=== PATIENT | male | born 1955 | race Caucasian/White ===

== ENCOUNTER 2017-07-08 19:22 | Inpatient (IN) ==
[2017-07-08] MEDS ORDERED: NITROGLYCERIN SL 0.4 MG TABLET SL PRN (19:57)
[2017-07-08] MEDS ORDERED: MORPHINE 4 MG/1 ML VIAL IV STA (19:57)
[2017-07-08] MEDS ORDERED: ASPIRIN 325 MG TABLET PO STA (19:57)
[2017-07-08] MEDS ORDERED: ONDANSETRON 4 MG/2 ML VIAL IV STA (19:57)
[2017-07-08 20:06] LABS: Basophils # 0.1 10*3/uL (0.0-0.2); Basophils % 0.6 % (0.0-0.8); Eosinophils # 0.3 10*3/uL (0.0-0.87); Eosinophils % 3.1 % (0.00-10.9); Hematocrit 46.8 VOL% (42.0-52.0); Hemoglobin 15.6 GM/DL (14.0-18.0); Immature Granulocytes % 0.4 %; Immature Granulocytes Absolute 0.03 #; Lymphocytes # 3.2 10*3/uL (1.4-4.0); Mean Corpuscular HGB Conc 33.3 GM/DL (32-36); Mean Corpuscular Hemoglobin 31 PG (27-34); Mean Corpuscular Volume 92.9 FL (87-102); Mean Platelet Volume 9.5 FL (9.6-12.0); Monocytes # 0.8 10*3/uL (0.11-0.8); Monocytes % 9.2 % (1.7-12.7); Neutrophils # 3.8 10*3/uL (1.4-7.4); Neutrophils % 46.7 % (38.7-73.9); Platelet Count 220 T/CUMM (130-400); Red Blood Count 5.04 MC/CUMM (3.8-5.5); Red Cell Distribution Width 13.1 % (9.3-17.3); White Blood Count 8.1 T/CUMM (4-12)
[2017-07-08 20:13] LABS: PT Patient Result 10.2 SECS
[2017-07-08 20:22] LABS: Albumin 4.1 G/DL (3.4-5.0); Bilirubin,Total 0.8 MG/DL (0.2-1.0); Calcium 9.5 MG/DL (8.5-10.1); Osmolality,Calculated 277.7 MOS/KG (273-304); Total Protein 7.8 G/DL (6.4-8.3)
[2017-07-08] MEDS ORDERED: LACTULOSE 20 GM/30 ML UDCUP PO PRN (22:53)
[2017-07-08] MEDS ORDERED: MAGNESIUM SULF RIDER 2 GM in PREMIX 1 EACH IV PRN ×2 (22:53)
[2017-07-08] MEDS ORDERED: ONDANSETRON 4 MG/2 ML VIAL IV PRN (22:53)
[2017-07-08] MEDS ORDERED: MAGNESIUM SULF RIDER 4 GM in PREMIX 1 EACH IV PRN ×2 (22:53)
[2017-07-08] MEDS ORDERED: ZALEPLON 5 MG CAPSULE PO PRN (22:53)
[2017-07-08] MEDS ORDERED: PANTOPRAZOLE 40 MG VIAL IV STA (22:53)
[2017-07-08] MEDS ORDERED: ACETAMINOPHEN 325 MG TABLET PO PRN (22:53)
[2017-07-08] MEDS: ENOXAPARIN 100 MG/ML SYRINGE SUBCUT SCH (23:15)
[2017-07-08] MEDS: PANTOPRAZOLE 40 MG TABLET PO SCH (23:15)
[2017-07-08] MEDS: NITROGLYCERIN 2% OINT 1 INCH/GM PACK TOP SCH (23:15)
[2017-07-09] MEDS: NITROGLYCERIN 2% OINT 1 INCH/GM PACK TOP SCH ×4 (01:33→17:19)
[2017-07-09 06:07] LABS: Risk Ratio 6.39; VLDL CHOLESTEROL 36.6 MG/DL
[2017-07-09 06:45] LABS: Troponin I Only 0.086 NG/ML (0.00-0.045)
[2017-07-09] MEDS: MELOXICAM 7.5 MG TABLET PO SCH (08:48)
[2017-07-09] MEDS: ASPIRIN 325 MG TABLET PO SCH (08:48)
[2017-07-09] MEDS: LOSARTAN 25 MG TABLET PO SCH (08:49)
[2017-07-09] MEDS: PANTOPRAZOLE 40 MG TABLET PO SCH (08:49)
[2017-07-09] MEDS: FLUTICASONE 50 MCG NASAL SPRAY 16 GM BOTTLE BOTH NARES SCH (09:59)
[2017-07-09] MEDS ORDERED: DIAZEPAM 5 MG TABLET PO ONE (11:23)
[2017-07-09] MEDS ORDERED: MAGNESIUM SULF RIDER 2 GM in PREMIX 1 EACH IV PRN (11:23)
[2017-07-09] MEDS ORDERED: diphenhydrAMINE CAP 25 MG CAPSULE PO ONE (11:23)
[2017-07-09] MEDS ORDERED: POTASSIUM CHLORIDE RIDER 10 MEQ in PREMIX 1 EACH IV PRN (11:23)
[2017-07-09] MEDS ORDERED: SODIUM CHLORIDE 0.9% 1,000 ML IV SCH ×2 (11:30→14:00)
[2017-07-09] MEDS: ENOXAPARIN 100 MG/ML SYRINGE SUBCUT SCH ×2 (11:51→22:55)
[2017-07-09] MEDS ORDERED: MIDAZOLAM 2 MG/2 ML VIAL ONE ×2 (11:58→12:18)
[2017-07-09] MEDS ORDERED: fentaNYL 100 MCG/2 ML VIAL ONE (11:59)
[2017-07-09] MEDS ORDERED: diphenhydrAMINE 50 MG/1 ML VIAL ONE (12:18)
[2017-07-09 12:31] LABS: Troponin I Only 0.061 NG/ML (0.00-0.045)
[2017-07-09] MEDS ORDERED: TIROFIBAN 5,000 MCG/100 ML PREMIX IV ONE (12:35)
[2017-07-09] MEDS ORDERED: TICAGRELOR 90 MG TABLET ONE (13:23)
[2017-07-09] MEDS ORDERED: NITROGLYCERIN DRIP 50 MG/250 ML BOTTLE IV ONE (13:24)
[2017-07-09] MEDS ORDERED: TIROFIBAN 5,000 MCG/100 ML PREMIX IV SCH (14:00)
[2017-07-09 17:28] LABS: CKMB % 10.2 %
[2017-07-09 17:30] LABS: Troponin I Only 5.77 NG/ML (0.00-0.045)
[2017-07-09] MEDS: TICAGRELOR 90 MG TABLET PO SCH (20:37)
[2017-07-09] MEDS: ROSUVASTATIN 20 MG TABLET PO SCH (20:38)
[2017-07-09 23:47] LABS: CKMB % 10.3 %
[2017-07-10 00:01] LABS: Troponin I Only 15.2 NG/ML (0.00-0.045)
[2017-07-10] MEDS: NITROGLYCERIN 2% OINT 1 INCH/GM PACK TOP SCH ×2 (00:15→06:16)
[2017-07-10 04:55] LABS: Basophils % 0.3 % (0.0-0.8); Eosinophils # 0.2 10*3/uL (0.0-0.87); Eosinophils % 2.2 % (0.00-10.9); Hematocrit 42.9 VOL% (42.0-52.0); Hemoglobin 14.9 GM/DL (14.0-18.0); Immature Granulocytes % 0.3 %; Immature Granulocytes Absolute 0.03 #; Lymphocytes # 2.1 10*3/uL (1.4-4.0); Lymphocytes % 24.2 % (21.2-54.2); Mean Corpuscular HGB Conc 34.7 GM/DL (32-36); Mean Corpuscular Hemoglobin 32 PG (27-34); Mean Corpuscular Volume 90.7 FL (87-102); Mean Platelet Volume 9.6 FL (9.6-12.0); Monocytes % 11.7 % (1.7-12.7); Neutrophils # 5.3 10*3/uL (1.4-7.4); Neutrophils % 61.3 % (38.7-73.9); Platelet Count 190 T/CUMM (130-400); Red Blood Count 4.73 MC/CUMM (3.8-5.5); Red Cell Distribution Width 13.1 % (9.3-17.3); White Blood Count 8.6 T/CUMM (4-12)
[2017-07-10 05:22] LABS: Osmolality,Calculated 281.3 MOS/KG (273-304); Potassium 4.3 MMOL/L (3.5-5.1)
[2017-07-10 05:27] LABS: CKMB % 10.3 %
[2017-07-10 05:31] LABS: Troponin I Only 10.9 NG/ML (0.00-0.045)
[2017-07-10] MEDS ORDERED: ASPIRIN CHEW 81 MG TABLET PO ONE (09:26)
[2017-07-10] MEDS: PANTOPRAZOLE 40 MG TABLET PO SCH (09:29)
[2017-07-10] MEDS: TICAGRELOR 90 MG TABLET PO SCH ×2 (09:29→21:28)
[2017-07-10] MEDS: LOSARTAN 25 MG TABLET PO SCH (09:29)
[2017-07-10] MEDS: MELOXICAM 7.5 MG TABLET PO SCH (09:29)
[2017-07-10] MEDS: FLUTICASONE 50 MCG NASAL SPRAY 16 GM BOTTLE BOTH NARES SCH (10:33)
[2017-07-10] MEDS: ASPIRIN 325 MG TABLET PO SCH (10:35)
[2017-07-10] MEDS: METOPROLOL SUCCINATE XL 25 MG TABLET PO SCH (10:52)
[2017-07-10] MEDS: ASPIRIN EC 81 MG TABLET PO SCH (10:52)
[2017-07-10] MEDS: ROSUVASTATIN 20 MG TABLET PO SCH (21:28)
[2017-07-11] MEDS: MELOXICAM 7.5 MG TABLET PO SCH (08:56)
[2017-07-11] MEDS: TICAGRELOR 90 MG TABLET PO SCH (08:56)
[2017-07-11] MEDS: METOPROLOL SUCCINATE XL 25 MG TABLET PO SCH (08:56)
[2017-07-11] MEDS: ASPIRIN EC 81 MG TABLET PO SCH (08:57)
[2017-07-11] MEDS: PANTOPRAZOLE 40 MG TABLET PO SCH (08:57)
[2017-07-11] MEDS: LOSARTAN 25 MG TABLET PO SCH (08:57)
[2017-07-11] MEDS: FLUTICASONE 50 MCG NASAL SPRAY 16 GM BOTTLE BOTH NARES SCH (08:59)
[2017-07-11 11:15] VITALS: BP 133/81
== END 2017-07-11 11:52 | disposition home or self-care (01) | DRG 247 ==
LOC: N.ED 19:22 → N.EDINP 19:22 → N.TELEN 22:07
PROVIDERS: ADMIT Internal Medicine Cardiovascular Disease; ATTEND Internal Medicine Cardiovascular Disease
PROC: CLCCHCL (ICD-10-PCS; 2017-07-09 12:45)

== ENCOUNTER 2018-08-26 05:32 | Inpatient (IN) ==
[2018-08-26] MEDS ORDERED: ASPIRIN 325 MG TABLET PO STA (05:41)
[2018-08-26] MEDS ORDERED: SODIUM CHLORIDE 0.9% 1,000 ML IV STA (05:41)
[2018-08-26] MEDS ORDERED: MORPHINE 4 MG/1 ML VIAL IV STA (05:52)
[2018-08-26] MEDS ORDERED: ONDANSETRON 4 MG/2 ML VIAL IV ONE (05:52)
[2018-08-26 06:00] LABS: Basophils # 0.1 10*3/uL (0.0-0.2); Basophils % 0.6 % (0.0-0.8); Eosinophils # 0.3 10*3/uL (0.0-0.87); Eosinophils % 3.5 % (0.00-10.9); Hematocrit 43.9 VOL% (42.0-52.0); Immature Granulocytes % 0.3 %; Immature Granulocytes Absolute 0.03 #; Lymphocytes # 3.9 10*3/uL (1.4-4.0); Lymphocytes % 41.4 % (21.2-54.2); Mean Corpuscular HGB Conc 31.9 GM/DL (32-36); Mean Corpuscular Volume 95.9 FL (87-102); Mean Platelet Volume 9.4 FL (9.6-12.0); Monocytes % 11.4 % (1.7-12.7); Neutrophils % 42.8 % (38.7-73.9); Platelet Count 191 T/CUMM (130-400); Red Blood Count 4.58 MC/CUMM (3.8-5.5); Red Cell Distribution Width 12.7 % (9.3-17.3); White Blood Count 9.5 T/CUMM (4-12)
[2018-08-26] MEDS ORDERED: NITROGLYCERIN SL 0.4 MG TABLET SL PRN ×2 (06:24→09:00)
[2018-08-26 06:25] LABS: Albumin 3.8 G/DL (3.4-5.0); Bilirubin,Total 1.2 MG/DL (0.2-1.0); Calcium 8.9 MG/DL (8.5-10.1); Osmolality,Calculated 288.8 MOS/KG (273-304); Total Protein 6.7 G/DL (6.4-8.3)
[2018-08-26] MEDS ORDERED: ENOXAPARIN 100 MG/ML SYRINGE SUBCUT STA (06:36)
[2018-08-26] MEDS ORDERED: diphenhydrAMINE CAP 25 MG CAPSULE PO ONE (07:10)
[2018-08-26] MEDS ORDERED: DIAZEPAM 5 MG TABLET PO ONE (07:10)
[2018-08-26] MEDS ORDERED: TICAGRELOR 90 MG TABLET ONE (07:34)
[2018-08-26] MEDS ORDERED: LIDOCAINE 1% 20 ML VIAL ONE (07:38)
[2018-08-26] MEDS ORDERED: HEPARIN/NACL 0.9% 2 UNITS/ML 1,000 ML IV ONE (07:38)
[2018-08-26] MEDS ORDERED: MIDAZOLAM 2 MG/2 ML VIAL ONE (07:56)
[2018-08-26] MEDS ORDERED: fentaNYL 100 MCG/2 ML VIAL ONE (07:56)
[2018-08-26] MEDS ORDERED: HEPARIN/NACL 0.9% 2 UNITS/ML 500 ML IV ONE (08:15)
[2018-08-26] MEDS ORDERED: TICAGRELOR 90 MG TABLET PO ONE (08:35)
[2018-08-26] MEDS ORDERED: ONDANSETRON 4 MG/2 ML VIAL IV PRN (09:00)
[2018-08-26] MEDS ORDERED: ACETAMINOPHEN 325 MG TABLET PO PRN (09:00)
[2018-08-26] MEDS: SODIUM CHLORIDE 0.9% 1,000 ML IV SCH ×2 (11:49→21:55)
[2018-08-26] MEDS: ROSUVASTATIN 20 MG TABLET PO SCH (21:55)
[2018-08-26] MEDS: TICAGRELOR 90 MG TABLET PO SCH (21:55)
[2018-08-27 03:46] LABS: Basophils % 0.4 % (0.0-0.8); Eosinophils # 0.2 10*3/uL (0.0-0.87); Eosinophils % 2.3 % (0.00-10.9); Hematocrit 40.1 VOL% (42.0-52.0); Immature Granulocytes % 0.3 %; Immature Granulocytes Absolute 0.03 #; Lymphocytes # 2.1 10*3/uL (1.4-4.0); Lymphocytes % 19.7 % (21.2-54.2); Mean Corpuscular HGB Conc 32.4 GM/DL (32-36); Mean Corpuscular Volume 96.6 FL (87-102); Mean Platelet Volume 9.9 FL (9.6-12.0); Monocytes % 12.4 % (1.7-12.7); Neutrophils % 64.9 % (38.7-73.9); Platelet Count 157 T/CUMM (130-400); Red Blood Count 4.15 MC/CUMM (3.8-5.5); Red Cell Distribution Width 12.8 % (9.3-17.3); White Blood Count 10.6 T/CUMM (4-12)
[2018-08-27 03:57] LABS: Calcium 8.5 MG/DL (8.5-10.1)
[2018-08-27 04:59] LABS: Risk Ratio 2.91; VLDL CHOLESTEROL 24.6 MG/DL
[2018-08-27] MEDS: SODIUM CHLORIDE 0.9% 1,000 ML IV SCH ×2 (06:08→08:15)
[2018-08-27] MEDS: TICAGRELOR 90 MG TABLET PO SCH ×2 (08:16→20:08)
[2018-08-27] MEDS: ASPIRIN EC 81 MG TABLET PO SCH (08:16)
[2018-08-27] MEDS: EZETIMIBE 10 MG TABLET PO SCH (08:16)
[2018-08-27] MEDS: FLUTICASONE 50 MCG NASAL SPRAY 16 GM BOTTLE BOTH NARES SCH (08:16)
[2018-08-27] MEDS ORDERED: ZALEPLON 5 MG CAPSULE PO PRN (09:54)
[2018-08-27] MEDS: ROSUVASTATIN 20 MG TABLET PO SCH (20:07)
[2018-08-28 05:50] LABS: Basophils # 0.1 10*3/uL (0.0-0.2); Basophils % 0.6 % (0.0-0.8); Eosinophils # 0.3 10*3/uL (0.0-0.87); Eosinophils % 3.5 % (0.00-10.9); Hematocrit 42.1 VOL% (42.0-52.0); Immature Granulocytes % 0.2 %; Immature Granulocytes Absolute 0.02 #; Lymphocytes # 2.5 10*3/uL (1.4-4.0); Lymphocytes % 27.7 % (21.2-54.2); Mean Corpuscular HGB Conc 33.3 GM/DL (32-36); Mean Corpuscular Volume 94.4 FL (87-102); Mean Platelet Volume 9.8 FL (9.6-12.0); Platelet Count 163 T/CUMM (130-400); Red Blood Count 4.46 MC/CUMM (3.8-5.5); Red Cell Distribution Width 12.6 % (9.3-17.3)
[2018-08-28 07:39] VITALS: BP 137/81
[2018-08-28] MEDS: ASPIRIN EC 81 MG TABLET PO SCH (08:15)
[2018-08-28] MEDS: TICAGRELOR 90 MG TABLET PO SCH (08:16)
[2018-08-28] MEDS: EZETIMIBE 10 MG TABLET PO SCH (08:16)
[2018-08-28] MEDS: FLUTICASONE 50 MCG NASAL SPRAY 16 GM BOTTLE BOTH NARES SCH (08:17)
[2018-08-28] MEDS ORDERED: LOSARTAN 25 MG TABLET PO SCH (09:00)
== END 2018-08-28 10:03 | disposition home or self-care (01) | DRG 246 ==
LOC: N.ED 05:32 → N.EDINP 07:10 → N.TELEN 07:43 → N.ICU 11:27 → N.TELEN 08-27 09:29
PROVIDERS: ADMIT Internal Medicine Cardiovascular Disease; ATTEND Internal Medicine Cardiovascular Disease
PROC: CLCCHCL (ICD-10-PCS; 2018-08-26 08:15)

== ENCOUNTER 2020-06-01 16:50 | Inpatient (IN) ==
[2020-06-01] MEDS ORDERED: ASPIRIN 325 MG TABLET ONE (17:05)
[2020-06-01] MEDS ORDERED: MORPHINE 4 MG/1 ML VIAL ONE (17:05)
[2020-06-01] MEDS ORDERED: NITROGLYCERIN DRIP 50 MG/250 ML BOTTLE IV ONE (17:05)
[2020-06-01] MEDS ORDERED: TICAGRELOR 90 MG TABLET PO STA (17:06)
[2020-06-01] MEDS ORDERED: HEPARIN 5,000 UNIT/1 ML VIAL IV ONE (17:06)
[2020-06-01] MEDS ORDERED: ASPIRIN CHEW 81 MG TABLET PO STA (17:06)
[2020-06-01] MEDS ORDERED: MORPHINE 4 MG/1 ML VIAL IV STA (17:07)
[2020-06-01] MEDS ORDERED: HEPARIN 5,000 UNIT/1 ML VIAL ONE ×3 (17:08→18:35)
[2020-06-01] MEDS ORDERED: NITROGLYCERIN SL 0.4 MG TABLET SL ONE (17:11)
[2020-06-01 17:12] LABS: Basophils # 0.1 10*3/uL (0.0-0.2); Basophils % 0.5 % (0.0-0.8); Eosinophils # 0.4 10*3/uL (0.0-0.87); Hemoglobin 16.4 GM/DL (14.0-18.0); Immature Granulocytes % 0.3 %; Immature Granulocytes Absolute 0.04 #; Lymphocytes # 4.7 10*3/uL (1.4-4.0); Lymphocytes % 37.4 % (21.2-54.2); Mean Corpuscular HGB Conc 33.5 GM/DL (32-36); Mean Corpuscular Volume 93.3 FL (87-102); Mean Platelet Volume 9.6 FL (9.6-12.0); Monocytes % 13.6 % (1.7-12.7); Neutrophils % 45.2 % (38.7-73.9); Platelet Count 237 T/CUMM (130-400); Red Blood Count 5.25 MC/CUMM (3.8-5.5); Red Cell Distribution Width 13.2 % (9.3-17.3); White Blood Count 12.6 T/CUMM (4-12)
[2020-06-01 17:22] LABS: PT Patient Result 10.3 SECS (9.8-11.9)
[2020-06-01] MEDS ORDERED: NITROGLYCERIN DRIP 50 MG/250 ML BOTTLE IV SCH (17:30)
[2020-06-01] MEDS ORDERED: HEPARIN/NACL 0.9% 2 UNITS/ML 500 ML IV ONE ×3 (17:34→18:42)
[2020-06-01] MEDS ORDERED: MIDAZOLAM 2 MG/2 ML VIAL ONE ×4 (17:38→18:47)
[2020-06-01] MEDS ORDERED: fentaNYL 100 MCG/2 ML VIAL ONE ×2 (17:38→18:34)
[2020-06-01] MEDS ORDERED: LIDOCAINE 1% 20 ML VIAL ONE (17:45)
[2020-06-01 18:02] LABS: Albumin 3.8 G/DL (3.4-5.0); Bilirubin,Total 0.7 MG/DL (0.2-1.0); Osmolality,Calculated 287.4 MOS/KG (273-304); Potassium 4.5 MMOL/L (3.5-5.1); Total Protein 7.2 G/DL (6.4-8.2)
[2020-06-01] MEDS ORDERED: NITROGLYCERIN SL 0.4 MG TABLET SL STA (18:53)
[2020-06-01] MEDS ORDERED: ceFAZolin 1,000 MG VIAL ONE (19:34)
[2020-06-01] MEDS ORDERED: NITROGLYCERIN DRIP 50 MG/250 ML BOTTLE IV PRN (19:57)
[2020-06-01] MEDS ORDERED: SODIUM CHLORIDE 0.9% 1,000 ML IV SCH (20:00)
[2020-06-01] MEDS: ROSUVASTATIN 20 MG TABLET PO SCH (21:51)
[2020-06-01] MEDS: EZETIMIBE 10 MG TABLET PO SCH (21:51)
[2020-06-01] MEDS: TICAGRELOR 90 MG TABLET PO SCH (22:06)
[2020-06-02 04:00] LABS: Basophils % 0.2 % (0.0-0.8); Eosinophils % 0.1 % (0.00-10.9); Hematocrit 42.6 VOL% (42.0-52.0); Immature Granulocytes % 0.6 %; Immature Granulocytes Absolute 0.08 #; Lymphocytes # 1.2 10*3/uL (1.4-4.0); Mean Corpuscular HGB Conc 32.2 GM/DL (32-36); Mean Corpuscular Volume 97.9 FL (87-102); Mean Platelet Volume 9.5 FL (9.6-12.0); Neutrophils % 81.1 % (38.7-73.9); Platelet Count 217 T/CUMM (130-400); Red Blood Count 4.35 MC/CUMM (3.8-5.5); Red Cell Distribution Width 13.2 % (9.3-17.3)
[2020-06-02 04:04] LABS: Hemoglobin 13.7 GM/DL (14.0-18.0)
[2020-06-02 04:09] LABS: Calcium 8.3 MG/DL (8.5-10.1); Osmolality,Calculated 287.3 MOS/KG (273-304); Potassium 4.5 MMOL/L (3.5-5.1)
[2020-06-02] MEDS ORDERED: FUROSEMIDE 40 MG/4 ML VIAL IV ONE (06:11)
[2020-06-02] MEDS: TICAGRELOR 90 MG TABLET PO SCH ×2 (09:50→20:15)
[2020-06-02] MEDS: ASPIRIN EC 81 MG TABLET PO SCH (09:50)
[2020-06-02] MEDS: ISOSORBIDE MONONITRATE 30 MG TABLET PO SCH (09:50)
[2020-06-02] MEDS ORDERED: ACETAMINOPHEN 325 MG TABLET ONE (15:18)
[2020-06-02] MEDS: ACETAMINOPHEN 325 MG TABLET PO PRN (15:29)
[2020-06-02] MEDS: EZETIMIBE 10 MG TABLET PO SCH (20:15)
[2020-06-02] MEDS: ROSUVASTATIN 20 MG TABLET PO SCH (20:15)
[2020-06-03 04:47] LABS: Basophils % 0.2 % (0.0-0.8); Eosinophils % 0.1 % (0.00-10.9); Hematocrit 48.6 VOL% (42.0-52.0); Hemoglobin 15.3 GM/DL (14.0-18.0); Immature Granulocytes % 0.5 %; Immature Granulocytes Absolute 0.08 #; Lymphocytes # 1.2 10*3/uL (1.4-4.0); Lymphocytes % 7.1 % (21.2-54.2); Mean Corpuscular HGB Conc 31.5 GM/DL (32-36); Mean Corpuscular Volume 99.6 FL (87-102); Mean Platelet Volume 9.6 FL (9.6-12.0); Monocytes % 10.6 % (1.7-12.7); Neutrophils % 81.5 % (38.7-73.9); Platelet Count 183 T/CUMM (130-400); Red Blood Count 4.88 MC/CUMM (3.8-5.5); Red Cell Distribution Width 13.5 % (9.3-17.3); White Blood Count 17.5 T/CUMM (4-12)
[2020-06-03 05:14] LABS: Calcium 8.9 MG/DL (8.5-10.1); Osmolality,Calculated 276.8 MOS/KG (273-304); Potassium 4.5 MMOL/L (3.5-5.1)
[2020-06-03] MEDS: ACETAMINOPHEN 325 MG TABLET PO PRN ×2 (06:19→12:12)
[2020-06-03] MEDS: ASPIRIN EC 81 MG TABLET PO SCH ×2 (08:06→08:16)
[2020-06-03] MEDS: TICAGRELOR 90 MG TABLET PO SCH ×2 (08:06→08:16)
[2020-06-03] MEDS: ISOSORBIDE MONONITRATE 30 MG TABLET PO SCH ×3 (08:07→09:05)
[2020-06-03] MEDS ORDERED: RANOLAZINE 500 MG TABLET PO ONE (08:58)
[2020-06-03] MEDS ORDERED: diphenhydrAMINE CAP 25 MG CAPSULE PO ONE (09:31)
[2020-06-03] MEDS ORDERED: DIAZEPAM 5 MG TABLET PO ONE (09:31)
[2020-06-03] MEDS ORDERED: POTASSIUM CHLORIDE RIDER 10 MEQ in PREMIX 1 EACH IV PRN (09:31)
[2020-06-03] MEDS ORDERED: MAGNESIUM SULF RIDER 2 GM in PREMIX 1 EACH IV PRN (09:31)
[2020-06-03] MEDS ORDERED: HEPARIN 5,000 UNIT/1 ML VIAL IV ONE (09:38)
[2020-06-03] MEDS ORDERED: HEPARIN DRIP 25,000 UNITS/500 ML PREMIX IV ONE (09:39)
[2020-06-03] MEDS ORDERED: HEPARIN/NACL 0.9% 2 UNITS/ML 1,000 ML IV ONE (09:44)
[2020-06-03] MEDS ORDERED: MIDAZOLAM 2 MG/2 ML VIAL ONE (09:44)
[2020-06-03] MEDS ORDERED: fentaNYL 100 MCG/2 ML VIAL ONE (09:44)
[2020-06-03] MEDS ORDERED: HEPARIN 5,000 UNIT/1 ML VIAL ONE ×2 (09:44→10:03)
[2020-06-03] MEDS ORDERED: LIDOCAINE 1% 20 ML VIAL ONE (09:44)
[2020-06-03] MEDS ORDERED: NITROPRUSSIDE 50 MG/2 ML VIAL ONE (09:45)
[2020-06-03] MEDS ORDERED: NITROGLYCERIN DRIP 50 MG/250 ML BOTTLE IV ONE (10:21)
[2020-06-03] MEDS ORDERED: HYDROmorphone 2 MG/1 ML VIAL ONE (10:39)
[2020-06-03] MEDS ORDERED: NITROGLYCERIN DRIP 50 MG/250 ML BOTTLE IV PRN (11:08)
[2020-06-03] MEDS: SACUBITRIL/VALSARTAN 49-51 MG TABLET PO SCH ×2 (11:55→22:04)
[2020-06-03] MEDS: carvediloL 3.125 MG TABLET PO SCH ×2 (11:55→22:07)
[2020-06-03] MEDS ORDERED: MORPHINE 4 MG/1 ML VIAL IV PRN ×2 (12:39→12:55)
[2020-06-03] MEDS ORDERED: KETOROLAC 30 MG/1 ML VIAL IV ONE ×2 (16:31→21:00)
[2020-06-03] MEDS ORDERED: KETOROLAC 15 MG/1 ML VIAL IV PRN (16:53)
[2020-06-03] MEDS ORDERED: PRASUGREL 10 MG TABLET PO ONE (17:01)
[2020-06-03] MEDS: ROSUVASTATIN 20 MG TABLET PO SCH (22:00)
[2020-06-03] MEDS: EZETIMIBE 10 MG TABLET PO SCH (22:04)
[2020-06-04 05:16] LABS: Basophils % 0.2 % (0.0-0.8); Eosinophils # 0.1 10*3/uL (0.0-0.87); Eosinophils % 0.6 % (0.00-10.9); Hemoglobin 13.4 GM/DL (14.0-18.0); Immature Granulocytes % 0.7 %; Immature Granulocytes Absolute 0.09 #; Lymphocytes # 1.6 10*3/uL (1.4-4.0); Lymphocytes % 12.5 % (21.2-54.2); Mean Corpuscular HGB Conc 33.5 GM/DL (32-36); Monocytes % 10.5 % (1.7-12.7); Neutrophils % 75.5 % (38.7-73.9); Platelet Count 168 T/CUMM (130-400); Red Blood Count 4.21 MC/CUMM (3.8-5.5); Red Cell Distribution Width 13.8 % (9.3-17.3)
[2020-06-04 05:53] LABS: Calcium 8.2 MG/DL (8.5-10.1); Osmolality,Calculated 276.8 MOS/KG (273-304); Potassium 4.2 MMOL/L (3.5-5.1)
[2020-06-04 05:58] LABS: Calcium 8.3 MG/DL (8.5-10.1); Potassium 4.3 MMOL/L (3.5-5.1)
[2020-06-04] MEDS: ASPIRIN 325 MG TABLET PO SCH ×3 (07:50→20:00)
[2020-06-04] MEDS ORDERED: MELATONIN 3 MG TABLET PO PRN (08:55)
[2020-06-04] MEDS: PRASUGREL 10 MG TABLET PO SCH (09:14)
[2020-06-04] MEDS: FAMOTIDINE 20 MG TABLET PO SCH ×2 (09:14→20:00)
[2020-06-04] MEDS: ISOSORBIDE MONONITRATE 30 MG TABLET PO SCH (09:14)
[2020-06-04] MEDS: PANTOPRAZOLE 40 MG TABLET PO SCH ×2 (09:14→20:00)
[2020-06-04] MEDS: carvediloL 3.125 MG TABLET PO SCH ×2 (09:14→20:00)
[2020-06-04] MEDS: SACUBITRIL/VALSARTAN 49-51 MG TABLET PO SCH ×2 (09:15→20:00)
[2020-06-04] MEDS: ROSUVASTATIN 20 MG TABLET PO SCH ×2 (20:00)
[2020-06-04] MEDS: EZETIMIBE 10 MG TABLET PO SCH (20:00)
[2020-06-05] MEDS: ASPIRIN 325 MG TABLET PO SCH ×4 (01:10→18:25)
[2020-06-05 05:22] LABS: Basophils % 0.3 % (0.0-0.8); Eosinophils # 0.2 10*3/uL (0.0-0.87); Eosinophils % 1.3 % (0.00-10.9); Hematocrit 37.7 VOL% (42.0-52.0); Hemoglobin 12.3 GM/DL (14.0-18.0); Immature Granulocytes % 0.5 %; Immature Granulocytes Absolute 0.06 #; Lymphocytes # 1.6 10*3/uL (1.4-4.0); Lymphocytes % 13.3 % (21.2-54.2); Mean Corpuscular HGB Conc 32.6 GM/DL (32-36); Mean Corpuscular Volume 94.7 FL (87-102); Monocytes % 10.4 % (1.7-12.7); Neutrophils % 74.2 % (38.7-73.9); Platelet Count 197 T/CUMM (130-400); Red Blood Count 3.98 MC/CUMM (3.8-5.5); Red Cell Distribution Width 13.7 % (9.3-17.3); White Blood Count 11.6 T/CUMM (4-12)
[2020-06-05 05:34] LABS: Calcium 8.6 MG/DL (8.5-10.1); Osmolality,Calculated 278.8 MOS/KG (273-304); Potassium 3.7 MMOL/L (3.5-5.1)
[2020-06-05] MEDS ORDERED: FUROSEMIDE 40 MG/4 ML VIAL IV ONE (08:15)
[2020-06-05 09:03] LABS: Calcium 8.9 MG/DL (8.5-10.1); Osmolality,Calculated 278.8 MOS/KG (273-304); Potassium 4.5 MMOL/L (3.5-5.1)
[2020-06-05] MEDS: carvediloL 3.125 MG TABLET PO SCH ×2 (09:09→21:00)
[2020-06-05] MEDS: PRASUGREL 10 MG TABLET PO SCH (09:09)
[2020-06-05] MEDS: SACUBITRIL/VALSARTAN 49-51 MG TABLET PO SCH ×2 (09:09→21:00)
[2020-06-05] MEDS: FAMOTIDINE 20 MG TABLET PO SCH ×2 (09:10→21:00)
[2020-06-05] MEDS: PANTOPRAZOLE 40 MG TABLET PO SCH ×2 (09:10→21:00)
[2020-06-05] MEDS: ISOSORBIDE MONONITRATE 30 MG TABLET PO SCH (09:10)
[2020-06-05] MEDS: SPIRONOLACTONE 25 MG TABLET PO SCH (09:17)
[2020-06-05] MEDS: EZETIMIBE 10 MG TABLET PO SCH (20:59)
[2020-06-05] MEDS: ROSUVASTATIN 20 MG TABLET PO SCH (21:00)
[2020-06-06 04:43] LABS: Basophils % 0.4 % (0.0-0.8); Eosinophils # 0.3 10*3/uL (0.0-0.87); Hematocrit 36.7 VOL% (42.0-52.0); Hemoglobin 11.9 GM/DL (14.0-18.0); Immature Granulocytes % 0.5 %; Immature Granulocytes Absolute 0.05 #; Lymphocytes # 1.6 10*3/uL (1.4-4.0); Lymphocytes % 15.9 % (21.2-54.2); Mean Corpuscular HGB Conc 32.4 GM/DL (32-36); Mean Corpuscular Volume 94.1 FL (87-102); Mean Platelet Volume 9.5 FL (9.6-12.0); Monocytes % 14.4 % (1.7-12.7); Neutrophils % 65.8 % (38.7-73.9); Platelet Count 225 T/CUMM (130-400); Red Cell Distribution Width 13.6 % (9.3-17.3); White Blood Count 9.9 T/CUMM (4-12)
[2020-06-06] MEDS ORDERED: ASPIRIN EC 81 MG TABLET PO SCH (09:00)
[2020-06-06] MEDS: FAMOTIDINE 20 MG TABLET PO SCH (09:17)
[2020-06-06] MEDS: SPIRONOLACTONE 25 MG TABLET PO SCH (09:17)
[2020-06-06] MEDS: SACUBITRIL/VALSARTAN 49-51 MG TABLET PO SCH (09:17)
[2020-06-06] MEDS: PRASUGREL 10 MG TABLET PO SCH (09:17)
[2020-06-06] MEDS: ISOSORBIDE MONONITRATE 30 MG TABLET PO SCH (09:17)
[2020-06-06] MEDS: PANTOPRAZOLE 40 MG TABLET PO SCH (09:17)
[2020-06-06] MEDS: carvediloL 3.125 MG TABLET PO SCH (09:17)
[2020-06-06 12:01] VITALS: BP 103/78
[2020-06-06] MEDS ORDERED: CLOPIDOGREL 300 MG TABLET PO ONE (12:36)
[2020-06-07] MEDS ORDERED: CLOPIDOGREL 75 MG TABLET PO SCH (09:00)
== END 2020-06-06 15:00 | disposition home or self-care (01) | DRG 246 ==
LOC: N.ED 16:50 → N.CL 20:56 → N.ICU 21:02 → N.TELEN 06-04 09:49
PROVIDERS: ADMIT Internal Medicine Cardiovascular Disease; ATTEND Internal Medicine Cardiovascular Disease
PROC: CLCCHCL (ICD-10-PCS; 2020-06-01 17:45)